=== PATIENT | female | born 1980 | race Caucasian/White ===

== ENCOUNTER 2017-02-16 06:02 | Inpatient (IN) | payer MEDICAID ==
[2017-02-16] MEDS ORDERED: RINGER'S SOLUTION,LACTATED 1,000 ML IV ONE (06:20)
[2017-02-16] MEDS ORDERED: LIDOCAINE HCL 50 ML VIAL PERI PRN (06:20)
[2017-02-16] MEDS ORDERED: INSULIN REGULAR HUMAN REC 100 UNITS in NORMAL SALINE 100 ML IV PRN (06:20)
[2017-02-16] MEDS ORDERED: OXYTOCIN/DEXTROSE 5%-WATER 30 UNITS/500 ML BAG IV ONE (06:20)
[2017-02-16] MEDS ORDERED: ONDANSETRON HCL/PF 2 MG/ML VIAL IV PRN ×2 (06:20→22:04)
[2017-02-16] MEDS ORDERED: MISOPROSTOL 100 MCG TABLET VG PRN (06:20)
[2017-02-16] MEDS ORDERED: PENICILLIN G POTASSIUM 5 MILLIONUNT in DEXTROSE 5 % IN WATER 100 ML IV ONE ×2 (07:02)
[2017-02-16] MEDS: LABETALOL HCL 100 MG TABLET PO SCH ×2 (08:55→21:03)
[2017-02-16] MEDS: PENICILLIN G POTASSIUM 2.5 MILLIONUNT in DEXTROSE 5 % IN WATER 100 ML IV SCH ×8 (11:04→23:18)
[2017-02-16 11:30] LABS: Urine Bilirubin Negative (NEGATIVE); Urine Blood Negative /ul (NEGATIVE); Urine Ketone Negative (NEGATIVE); Urine Nitrite Negative (NEGATIVE); Urine Protein Negative (NEGATIVE); Urine Urobilinogen Normal (NORMAL)
[2017-02-16 11:31] LABS: Urine Appearance Clear; Urine Color Yellow
[2017-02-16] MEDS: DEXTROSE 5%-LACTATED RINGERS 1,000 ML IV PRN (18:37)
--- NOTE | 2017-02-16 21:04 | PN ---
Progess Note - Interim Narrative: 02/16/17 21:00 Patient rating contractions as mild Vital signs stable. Pitocin at 6 mu/min. 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 Plan: Continue penicillin for GBS prophylaxis and with Pitocin augmentation as needed.
[2017-02-16] MEDS ORDERED: NALOXONE HCL 1 MG/1 ML SYRG IV PRN (22:04)
[2017-02-16] MEDS ORDERED: BUPIVACAINE HCL/0.9 % NACL/PF 250 ML EP PRN (22:04)
[2017-02-16] MEDS ORDERED: fentaNYL CITRATE/PF 50 MCG/ML AMPUL IT SCH (22:15)
--- NOTE | 2017-02-16 22:45 | OR ---
Anesthesia Procedure Note - Anesthesia Procedure Note Narrative: Vital Signs - Last Taken Temp 36.3 C L 02/16/17 22:20 Pulse 108 H 02/16/17 22:20 Resp 18 02/16/17 22:20 BP 141/95 02/16/17 22:20 Pulse Ox 97 02/16/17 22:20 02/16/17 22:44 ANESTHESIA PROCEDURE NOTE Date of Procedure: 02/16/2017 Time of procedure: 2229. Performed by: Gurwinder Arguello CRNA Clinic Lead: None. Preprocedure diagnosis: Active labor. Post procedure diagnosis: Same. Procedure: Insertion of labor epidural. Indications: The patient is a 36 -year-old multigravida female in active labor requesting labor epidural for pain management. Findings: See below. Details of the procedure: The patient was placed in a sitting position. Back was prepped with DuraPrep. Patient was then draped in a sterile fashion. Lidocaine 1% was infiltrated to the skin and subcutaneous tissues at the level of the L3 4 interspace. The epidural space was identified using a 18-gauge Tuohy needle with inys-xu-wbcygyzlyp technique. 20 mcg fentanyl was given intrathecally using a 27 ga. spinal needle. Epidural catheter was inserted without difficulty. Negative test dose was elicited using 5 mL of 1.5% preservative-free lidocaine plus epinephrine 1 200,000. The epidural catheter was then taped and secured in place. EBL: Minimal. Fluids: N/A. Specimen: N/A. Post procedure condition: The patient tolerated the procedure well. No complications were noted. Thank you for this consultation. Rogers CRNA
[2017-02-17] MEDS ORDERED: RINGER'S SOLUTION,LACTATED 1,000 ML IV ONE ×3 (00:18→11:45)
--- NOTE | 2017-02-17 00:58 | PN ---
Progess Note - Interim Narrative: 02/17/17 00:54 Patient comfortable with epidural Vital signs stable. Pitocin was at 9 mu/min then turned off for 30 minutes due to frequent late decelerations after epidural placement which has now since resolved.. FHT: 120 baseline, reassuring Contractions q 4-5 min Cervix: 4/60/-2 Impression: Intrauterine at 38-1/7 weeks induction of labor for chronic hypertension and insulin-dependent diabetes complicated by discordant accelerated growth, advanced maternal age and group B strep carrier. Plan: We'll restart Pitocin since late decelerations have resolved.
[2017-02-17 01:31] LABS: Urine Appearance Clear; Urine Bilirubin Negative (NEGATIVE); Urine Blood Negative /ul (NEGATIVE); Urine Color Yellow; Urine Ketone 15 mg/dL (NEGATIVE); Urine Nitrite Negative (NEGATIVE); Urine Protein Negative (NEGATIVE); Urine Urobilinogen Normal (NORMAL)
[2017-02-17] MEDS: PENICILLIN G POTASSIUM 2.5 MILLIONUNT in DEXTROSE 5 % IN WATER 100 ML IV SCH ×6 (02:42→10:48)
--- NOTE | 2017-02-17 03:38 | PN ---
Progess Note - Interim Narrative: 02/17/17 03:35 Patient not getting relief with epidural Vital signs stable. Fasting blood sugar 99, small ketones in urine. Pitocin at 6 mu/min. FHT: 140 baseline, reassuring with frequent early decelerations, Contractions q 3-4 min Cervix: 6/80/-3 Impression: Intrauterine at 38 1/7 weeks induction of labor for chronic hypertension and insulin-dependent diabetes. Inadequate pain relief Plan: Contact anesthesia for possible re-dosing of epidural. Continue present plan
[2017-02-17] MEDS ORDERED: fentaNYL CITRATE/PF 50 MCG/ML AMPUL IT ONE (05:12)
[2017-02-17] MEDS ORDERED: fentaNYL CITRATE/PF 50 MCG/ML AMPUL ONE (05:26)
--- NOTE | 2017-02-17 05:53 | OR ---
Anesthesia Procedure Note - Anesthesia Procedure Note Narrative: Vital Signs - Last Taken Temp 36.3 C L 02/16/17 22:20 Pulse 108 H 02/16/17 22:20 Resp 18 02/16/17 22:20 BP 141/95 02/16/17 22:20 Pulse Ox 97 02/16/17 22:20 02/17/17 05:48 ANESTHESIA PROCEDURE NOTE Date of Procedure: 02/17/2017 Time of procedure: 08 20. Performed by: Gurwinder Arguello CRNA [place] Worker: None. Preprocedure diagnosis: Active labor. Post procedure diagnosis: Same. Procedure: Reinsertion of labor epidural. Indications: The patient is a 36 -year-old multigravida female in active labor requesting labor epidural for pain management. Findings: See below. Notified by OB nurse that epidural analgesia was ineffective. Patient dilated to 6 cm. Examination of the epidural catheter showed that the catheter had been dislodged. The catheter was removed intact. Patient agrees to reinsertion of a new epidural catheter. Details of the procedure: The patient was placed in a sitting position. Back was prepped with DuraPrep. Patient was then draped in a sterile fashion. Lidocaine 1% was infiltrated to the skin and subcutaneous tissues at the level of the L4 5 interspace. The epidural space was identified using a 18-gauge Tuohy needle with ghin-xs-vxzlppxyml technique. 20 mcg fentanyl was given intrathecally using a 27 ga. spinal needle. Epidural catheter was inserted without difficulty. Negative test dose was elicited using 5 mL of 1.5% preservative-free lidocaine plus epinephrine 1 200,000. The epidural catheter was then taped and secured in place. EBL: Minimal. Fluids: N/A. Specimen: N/A. Post procedure condition: The patient tolerated the procedure well. No complications were noted. Thank you for this consultation. Rogers CRNA
[2017-02-17 08:00] LABS: Urine Bilirubin Negative (NEGATIVE); Urine Blood 250 /ul (NEGATIVE); Urine Ketone 50 mg/dL (NEGATIVE); Urine Nitrite Negative (NEGATIVE); Urine Protein 15 mg/dL (NEGATIVE); Urine Specific Gravity >=1.030 SP.GR. (1.005-1.010); Urine Urobilinogen Normal (NORMAL)
[2017-02-17 08:02] LABS: Urine Appearance Clear; Urine Color Dark Yellow
--- NOTE | 2017-02-17 08:56 | PN ---
Progess Note - Interim Narrative: 02/17/17 08:52 Patient was having recurrent late decelerations which resolved with position changes fluid bolus and stopping Pitocin. Tracing looks reassuring with good beat to beat variability and accelerations and no decelerations. Pitocin restarted at 6 mU/m. Blood sugars were elevated at 129 with 50 of ketones in urine dip patient was started on insulin drip and blood sugar is now 95. Cervix remains unchanged at 7/80/-3. Discussed with patient and spouse the possibility of section if intolerance to labor or arrest of dilation occurs. We'll continue with position changes and Pitocin augmentation for now.
[2017-02-17] MEDS: DEXTROSE 5%-LACTATED RINGERS 1,000 ML IV PRN ×2 (09:27→11:14)
[2017-02-17] MEDS: LABETALOL HCL 100 MG TABLET PO SCH ×2 (09:28→21:02)
[2017-02-17] MEDS ORDERED: ceFAZolin SODIUM/DEXTROSE,ISO 2 GM/50 ML BAG IV ONE (10:15)
[2017-02-17] MEDS ORDERED: OXYTOCIN 20 UNITS in RINGER'S SOLUTION,LACTATED 1,000 ML IV ONE (10:15)
--- NOTE | 2017-02-17 10:22 | PN ---
Progess Note - Interim Narrative: 02/17/17 10:17 Patient comfortable with epidural Vital signs stable. Pitocin turned down from 9 to 6 mu/min. FHT: 140 baseline, intermittent runs of late decelerations Contractions q 2-4 min Cervix: 7/80/-3, no exchange clerk the past 3 hours Impression: Intrauterine at 38 1/7 weeks induction of labor for chronic hypertension and insulin-dependent diabetes, now with intolerance to labor and protracted labor. Risks, benefits, and alternatives to section discussed earlier with patient and spouse. Plan: If no improvement of tracing with position changes, fluid bolus, and reduction of Pitocin will proceed with section.
--- NOTE | 2017-02-17 11:40 | PN ---
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 Still /-3. Only occasional late deceleration since stopping pitocin 30 min ago. Will proceed with emergent primary c/s for intolerance to labor and arrest of dilation. All questions answered.
[2017-02-17] MEDS ORDERED: ONDANSETRON HCL/PF 2 MG/ML VIAL IV PRN (13:44)
[2017-02-17] MEDS ORDERED: BISACODYL 10 MG SUPP.RECT RC PRN (13:44)
[2017-02-17] MEDS ORDERED: SENNOSIDES 8.6 MG TABLET PO PRN (13:44)
[2017-02-17] MEDS ORDERED: SIMETHICONE 80 MG TAB.CHEW PO PRN (13:44)
[2017-02-17] MEDS ORDERED: oxyCODONE HCL/ACETAMINOPHEN 1 TAB TABLET PO PRN (13:44)
--- NOTE | 2017-02-17 13:54 | OR ---
Operative Report - Dictated Report Narrative: Indication: 36-year-old 7 para 3 admitted to labor and delivery for induction of labor due to chronic hypertension and insulin-dependent diabetes with accelerated growth. Throughout her labor patient had intermittent runs of late decelerations which resolved with discontinuation of Pitocin. Patient progressed to 7 cm -3 station but did not make further cervical exchange trouble shooter 5 hours of adequate labor and required stopping the Pitocin several times due to recurrent late decelerations. Status: Emergent Pre Operative Diagnosis: 38-1/7 week intrauterine , chronic hypertension on medication, diabetes mellitus on insulin, advanced maternal age , morbid obesity, recurrent late decelerations, arrest of dilation Post Operative Diagnosis: Same. Procedure Preformed: Primary Low Transverse Section Surgeon: Dilma Evans DO [employer] Manager: OR Staff Anesthesia: Spinal Estimated Blood Loss: 1000 mL Urine Output: 100 mL Fluids Given: 1400 mL Drains: Wells to gravity Surgical Complications: None Specimens: Placenta to pathology Findings: Viable male born in cephalic presentation at 1227 on 2017 with Apgars 7 and 8, weighing 3658 g. Cord gases obtained. Normal uterus , tubes, ovaries. Technique: The patient was taken to the operating room and placed in dorsal supine position with a left lateral tilt. After adequate final anesthesia, wells catheter insertion,SCDs placed, and 2 g of Ancef given preoperatively, the abdominal cavity was entered via a [modified Shmuel-Carroll] incision. Two rolled laps were placed in the pericolic gutters on either side of the uterus. A transverse incision was made in the lower uterine segment and extended laterally and upwardly with digital traction. Clear fluid was noted upon amniotomy. The was delivered easily. The cord was clamped and cut and was handed off to awaiting fire safety inspector. The placenta was allowed to deliver spontaneously. The uterus was cleared of clot and debris. Uterine incision was closed with 0 Vicryl using a running stitch. A second imbricating layer was placed. Several vnjart-wb-gmzac sutures were required to provide excellent hemostasis. Rolled laps were removed from the abdominal cavitiy. The peritoneum was closed with a running 3-0 Monocryl. The same suture was used to approximate the rectus and pyramidalis muscles. The fascia was closed with a running 0 Vicryl. The subcutaneous layer was closed with a running 3-0 Monocryl. The same suture was used to approximate the subdermal layer. The skin was closed with a running 4-0 Monocryl and Dermabond. Sponge, lap, needle , and instrument count were correct x 2. Disposition: The patient was transferred to post anesthesia care unit in good condition History for MU Definition: * The number of deliveries resulting in a live the patient experienced prior to current hospitalization * The previous delivery of live twins or any live multiple gestation is considered one live event. *If primagravida or nulliparous is documented select zero for the number of previous live births. Live Events: 3
[2017-02-17] MEDS: IBUPROFEN 800 MG TABLET PO PRN ×2 (15:55→23:18)
[2017-02-17] MEDS: oxyCODONE HCL/ACETAMINOPHEN 1 TAB TABLET PO PRN ×3 (15:56→23:18)
[2017-02-17] MEDS: metFORMIN HCL 750 MG TAB.SR.24H PO SCH (17:00)
[2017-02-17] MEDS: FERROUS SULFATE 325 MG TABLET PO SCH (17:01)
[2017-02-17] MEDS: ENOXAPARIN SODIUM 40 MG/0.4 ML SYRG SC SCH (21:05)
[2017-02-17] MEDS: DOCUSATE SODIUM 100 MG CAPSULE PO SCH (21:05)
[2017-02-18] MEDS: oxyCODONE HCL/ACETAMINOPHEN 1 TAB TABLET PO PRN ×5 (00:19→17:26)
[2017-02-18] MEDS: IBUPROFEN 800 MG TABLET PO PRN ×3 (05:58→20:46)
[2017-02-18] MEDS: DOCUSATE SODIUM 100 MG CAPSULE PO SCH ×2 (09:22→20:41)
[2017-02-18] MEDS: metFORMIN HCL 750 MG TAB.SR.24H PO SCH (09:22)
[2017-02-18] MEDS: FERROUS SULFATE 325 MG TABLET PO SCH ×2 (09:22→17:23)
[2017-02-18] MEDS: PRENATAL VITS96/IRON FUM/FOLIC 1 TAB TABLET PO SCH (09:22)
[2017-02-18] MEDS: LABETALOL HCL 100 MG TABLET PO SCH ×2 (09:23→20:46)
[2017-02-18] MEDS: ASCORBIC ACID 500 MG TABLET PO SCH (09:23)
--- NOTE | 2017-02-18 09:43 | PN ---
Subjective - Date and Time Seen Date: 02/18/17 Time: 09:42 Objective - Vitals Vitals: Last Vital Signs Temp 36.6 C 02/18/17 06:30 Pulse 93 02/18/17 09:23 Resp 18 02/18/17 06:30 BP 128/57 02/18/17 09:23 Pulse Ox 98 02/18/17 06:30 Patient denies complaints. Tolerating regular diet. Ambulating without difficulty. Pain well controlled. Lochia wnl. Abdomen - soft, appropriately tender Incision - clean, dry, intact Uterus - firm, at umbilicus -1 No calf tenderness Impression: Post op day #1 s/p primary section. Chronic hypertension- stable. Diabetes-stable Plan: Continue routine post-operative/ care Cauti Physician Documentation - Urinary Catheter Management Urethral (Amaro) Date of Insertion: 02/16/17 Time of Insertion: 22:35 Date of Removal: 02/18/17 Time of Removal: 00:44
[2017-02-18] MEDS: ENOXAPARIN SODIUM 40 MG/0.4 ML SYRG SC SCH (21:21)
[2017-02-19] MEDS: oxyCODONE HCL/ACETAMINOPHEN 1 TAB TABLET PO PRN ×2 (07:52→13:57)
[2017-02-19] MEDS: FERROUS SULFATE 325 MG TABLET PO SCH ×2 (10:02→17:23)
[2017-02-19] MEDS: metFORMIN HCL 750 MG TAB.SR.24H PO SCH (10:02)
[2017-02-19] MEDS: DOCUSATE SODIUM 100 MG CAPSULE PO SCH ×2 (10:02→21:06)
[2017-02-19] MEDS: PRENATAL VITS96/IRON FUM/FOLIC 1 TAB TABLET PO SCH (10:03)
[2017-02-19] MEDS: LABETALOL HCL 100 MG TABLET PO SCH ×2 (10:03→21:06)
[2017-02-19] MEDS: ASCORBIC ACID 500 MG TABLET PO SCH (10:03)
[2017-02-19] MEDS: IBUPROFEN 800 MG TABLET PO PRN (12:19)
--- NOTE | 2017-02-19 12:20 | PN ---
Subjective - Date and Time Seen Date: 02/19/17 Time: 12:18 Objective - Vitals Vitals: Last Vital Signs Temp 36.3 C L 02/19/17 07:31 Pulse 92 02/19/17 10:03 Resp 16 02/19/17 07:31 BP 132/63 02/19/17 10:03 Pulse Ox 100 02/19/17 07:31 Patient denies complaints. Ambulating well. Tolerating regular diet. Pain well controlled. Lochia wnl. Abdomen - soft, appropriately tender Incision - clean, dry, intact Uterus - firm, at umbilicus -2 No calf tenderness Impression: Post op day #2 s/p primary section for nonreassuring heart tracing and arrest of descent. Type 2 diabetes-stable. Chronic hypertension-stable. Morbid obesity. Advanced maternal age Plan: Continue routine post-operative/ care. Patient will check her blood sugars the day before her 2 week postop appointment. Cauti Physician Documentation - Urinary Catheter Management Urethral (Amaro) Date of Insertion: 02/16/17 Time of Insertion: 22:35 Date of Removal: 02/18/17 Time of Removal: 00:44
[2017-02-19] MEDS: ENOXAPARIN SODIUM 40 MG/0.4 ML SYRG SC SCH (21:06)
[2017-02-20] MEDS: IBUPROFEN 800 MG TABLET PO PRN (04:10)
[2017-02-20 08:37] VITALS: BP 130/79
[2017-02-20] MEDS: LABETALOL HCL 100 MG TABLET PO SCH (09:12)
[2017-02-20] MEDS: DOCUSATE SODIUM 100 MG CAPSULE PO SCH (09:12)
[2017-02-20] MEDS: PRENATAL VITS96/IRON FUM/FOLIC 1 TAB TABLET PO SCH (09:13)
[2017-02-20] MEDS: metFORMIN HCL 750 MG TAB.SR.24H PO SCH (09:13)
[2017-02-20] MEDS: FERROUS SULFATE 325 MG TABLET PO SCH (09:19)
[2017-02-20] MEDS: ASCORBIC ACID 500 MG TABLET PO SCH (09:22)
--- NOTE | 2017-02-20 09:40 | PN ---
Progess Note - Interim Narrative: 02/20/17 09:38 progress note Subjective: The patient is doing well. She is ambulating, voiding, tolerating by mouth. She has minimal pain and moderate lochia. Objective: General: No acute distress Abdomen: Soft, nontender, fundus is firm just below the umbilicus Extremities: minimal edema, nontender to palpation Incision: dermabond has glued skin together and bleeds with separation. C/D/I Assessment and plan: day 3 Incision care reviewed Feeding: Pumping Pain: Controlled with by mouth medication GDM: cont. on metformin Routine care.
== END 2017-02-20 09:55 | disposition home or self-care (01) | DRG 765 ==
LOC: OB 06:02
PROVIDERS: ADMIT Obstetrics & Gynecology; ATTEND Obstetrics & Gynecology
PROC: 10907ZC Drainage of Amniotic Fluid, Therapeutic from Products of Conception, Via Natural or Artificial Opening (ICD-10-PCS; 2017-02-17)
PROC: 4A1H7CZ Monitoring of Products of Conception, Cardiac Rate, Via Natural or Artificial Opening (ICD-10-PCS; 2017-02-17)
PROC: 10D00Z1 Extraction of Products of Conception, Low, Open Approach (ICD-10-PCS; principal; 2017-02-17 11:30)
DX: O62.0 Primary inadequate contractions (principal); O76 Abnormality in fetal heart rate and rhythm complicating labor and delivery; O24.12 Pre-existing type 2 diabetes mellitus, in childbirth; O10.02 Pre-existing essential hypertension complicating childbirth; Z68.42 Body mass index [BMI] 45.0-49.9, adult; E11.9 Type 2 diabetes mellitus without complications; O99.824 Streptococcus B carrier state complicating childbirth; O99.214 Obesity complicating childbirth; E66.01 Morbid (severe) obesity due to excess calories; O99.02 Anemia complicating childbirth; D50.8 Other iron deficiency anemias; Z3A.38 38 weeks gestation of pregnancy; Z37.0 Single live birth; Z79.4 Long term (current) use of insulin